=== PATIENT | female | born 1950 | race African-American/Black ===

== ENCOUNTER 2019-03-05 14:54 | Emergency (ER) | payer OTHER ==
--- NOTE | 2019-03-05 16:05 | RAD REPORT ---
EXAM DESCRIPTION: CT - Head Brain Wo Cont - 03/05/2019 3:55 pm CLINICAL HISTORY: Dysarthria/facial droop COMPARISON: 2016 MRI TECHNIQUE: Computed axial tomography of the head was obtained. IV contrast was not requested. All CT scans are performed using dose optimization technique as appropriate and may include automated exposure control or mA/KV adjustment according to patient size. FINDINGS: An intracranial bleed is not seen . The ventricles are normal in caliber. No extra-axial fluid collection is noted. Fluid within the sinuses/ mastoids is not seen. IMPRESSION: No acute intracranial abnormality is seen. If patient's symptoms persist MRI of the bra in would be recommended.
--- NOTE | 2019-03-05 16:18 | EKG ---
Test Date: 2019-03-05 Test Time: 14:55:03 Locksmith Helper: DANIEL MEASUREMENT RESULTS: Intervals: Rate: 75 KS: 152 QRSD: 92 QT: 354 QTc: 395 [place]: P: 65 KS: 152 QRS: -53 T: 50 INTERPRETIVE STATEMENTS: Normal sinus rhythm Left anterior fascicular block Abnormal ECG No previous ECG available for comparison Electronically Signed On 03-05-19 16:17:19 KICK PRESS SETTER by Yao Mcmahon
[2019-03-05 16:28] LABS: ALT/SGPT 117 U/L (12-78); AST/SGOT 65 U/L (15-37); Alkaline Phosphatase 89 U/L (45-117); BUN Blood Urea Nitrogen 10 mg/dL (7-18); Bicarbonate 28 mmol/L (21-32); Bilirubin Direct 0.2 mg/dL (0-0.2); Bilirubin Total 0.5 mg/dL (0.2-1.0); Glucose Level 124 mg/dL (74-106); Magnesium 1.8 mg/dL (1.8-2.4); NT PRO-BNP 210 pg/mL (<125); Potassium 3.2 mmol/L (3.5-5.1); Protein, Total 6.9 g/dL (6.4-8.2); Sodium Level 142 mmol/L (136-145); Troponin (Emerg Dept Use Only) < 0.02 ng/mL (0.0-0.045)
[2019-03-05 16:34] LABS: Absolute Lymphocytes (CBC) 3.1 K/uL (0.7-4.9); Basophils % 0.9 % (0-1.3); Hematocrit 39.5 % (36.0-45.0); Lymphocytes % 47.5 % (15.3-44.8); MPV 10.2 fL (7.6-11.3); RBC Red Blood Cell Count 4.67 M/uL (3.86-4.86)
[2019-03-05 16:36] LABS: Protime INR 1.25
--- NOTE | 2019-03-05 16:37 | RAD REPORT ---
EXAM DESCRIPTION: Abril Single View03/05/2019 4:06 pm CLINICAL HISTORY: Vomiting and dysarthria COMPARISON: none FINDINGS: The lungs appear clear of acute infiltrate. The heart is normal size IMPRESSION: No acute abnormalities displayed
[2019-03-05] MEDS ORDERED: POTASSIUM CL SA 10 MEQ TAB PO ONE (16:58)
--- NOTE | 2019-03-05 18:28 | RAD REPORT ---
EXAM DESCRIPTION: MRI - Brain Wo Cont - 03/05/2019 6:09 pm CLINICAL HISTORY: Dysarthria and weakness. Renal cell carcinoma COMPARISON: Head CT March 05, 2019 TECHNIQUE: Axial, sagittal, and coronal magnetic images of the brain were obtained. Contrast was not requested FINDINGS: No significant abnormal signal is present within the brain. Diffusion-weighted/ADC mapping does not reveal evidence of acute infarction. The ventricles are normal caliber. An extra-axial fluid collection is not present Fluid within the sinuses/mastoids is not present IMPRESSION: No acute abnormality is displayed
--- NOTE | 2019-03-05 19:08 | ER ---
Nurse's Notes [facility] Name: Marcela Mcmahon Age: 68 yrs Sex: Female : 1950 Arrival Date: 03/05/2019 Time: 14:59 Bed 6 Private MD: Diagnosis: Dizziness and giddiness Presentation: 03/05 15:00 Presenting complaint: EMS states: Pt went to PCP then to ENT and they reported she was jl7 having 'dysarthria and facial droop'. No facial droop noted, pt noted to be talking slowly. Pt reports vomiting Sunday night and having difficulty speaking and walking since Sunday with some right sided weakness. EMS reports VAN negative. Manual BP 180/90, HR 76, 93% on RA. Transition of care: patient was not received from another setting of care. Onset of symptoms was February 28, 2019. Risk Assessment: Do you want to hurt yourself or someone else? Patient reports no desire to harm self or others. Initial Sepsis Screen: Does the patient meet any 2 criteria? No. Patient's initial sepsis screen is negative. Does the patient have a suspected source of infection? No. Patient's initial sepsis screen is negative. Care prior to arrival: IV initiated. 18 GA, in the left wrist, Glucose check: 171 Oxygen administered. via nasal cannula. 15:00 Method Of Arrival: EMS: [facility] jl7 15:00 Acuity: ROBERT 2 jl7 15:00 No acute neurological deficit is noted. The patients blood glucose was checked before 7 arriving to the hospital and was found to be normal. Stroke Activation: Symptom onset > 6 hours Physician: Stroke Attending; Name: ; Notified At: ; Arrived At: Physician: Chief Stroke Resident; Name: ; Notified At: ; Arrived At: Physician: Stroke Resident; Name: ; Notified At: ; Arrived At: Physician: ED Attending; Name: ; Notified At: ; Arrived At: Physician: ED Resident; Name: ; Notified At: ; Arrived At: Historical: - Allergies: 15:12 Codeine; jl7 - PMHx: 15:12 Cancer; Hypertension; jl7 - Immunization history:: Adult Immunizations unknown. - Social history:: Smoking status: Patient/guardian denies using tobacco. - Ebola Screening: : No symptoms or risks identified at this time. Screenin:00 VAN Screening: Arm Drift: Patient shows no arm weakness. Patient is VAN negative. jl7 15:00 Abuse screen: Denies threats or abuse. Denies injuries from another. Nutritional jl7 screening: No deficits noted. Tuberculosis screening: No symptoms or risk factors identified. Fall Risk IV access (20 points). Total Bullock Fall Scale indicates No Risk (0-24 pts). 16:50 The patient has not been NPO before screening. The patient is currently on the jl7 following diet: Regular The patient is alert, able to follow commands. The patient does not exhibit slurred or garbled speech The patient is not exhibiting difficulty speaking. The patient does not exhibit difficulty understanding words. The patient is able to swallow own secretions with no drooling or need for suction. Patient tolerated one teaspoon of water. No drooling, immediate coughing, gurgling, or clearing of the throat was noted. The patient tolerated 90mL of water. No drooling, immediate coughing, gurgling, or clearing of the throat was noted. The patient passed the bedside swallow screening. Oral medications may be given as ordered. Contact Physician for further diet orders. Provider notified of bedside swallow screening results: Brian Bonds MD. Assessment: 15:00 General: Appears in no apparent distress. uncomfortable, obese, Behavior is calm, jl7 cooperative, drowsy. Pain: Denies pain. Neuro: Level of Consciousness is obeys commands, Drowsy. Oriented to person, place, time, situation, Denies dizziness. Cardiovascular: Denies chest pain, Heart tones S1 S2 present Patient's skin is warm and dry. Respiratory: Airway is patent Respiratory effort is even, unlabored, Respiratory pattern is regular, symmetrical, Breath sounds are clear bilaterally. GI: Abdomen is non-distended, obese, Reports nausea, Patient currently denies diarrhea. : Denies burning with urination. EENT: No signs and/or symptoms were reported regarding the EENT system. Derm: Skin is pink, warm \\T\\ dry. Musculoskeletal: No signs and/or symptoms reported regarding the musculoskeletal system. 15:59 Reassessment: Patient appears in no apparent distress at this time. No changes from jl7 previously documented assessment. Patient and/or family updated on plan of care and expected duration. Pain level reassessed. Patient is alert, oriented x 3, equal unlabored respirations, skin warm/dry/pink. Pt's sister at bedside and reports pt is at baseline other than being drowsy. 17:00 Reassessment: Patient appears in no apparent distress at this time. Patient and/or jl7 family updated on plan of care and expected duration. Pain level reassessed. Patient is alert, oriented x 3, equal unlabored respirations, skin warm/dry/pink. Patient states feeling better. Patient states symptoms have improved. 17:16 Reassessment: Pt states "What are we going to do about my dizziness?" On initial jl7 assessment pt denies dizziness, pt reports I've been dizzy since Sunday. Pt updated on MRI order. 18:15 Reassessment: Patient appears in no apparent distress at this time. No changes from jl7 previously documented assessment. Patient and/or family updated on plan of care and expected duration. Pain level reassessed. Patient is alert, oriented x 3, equal unlabored respirations, skin warm/dry/pink. 19:47 Reassessment: Patient and/or family updated on plan of care and expected duration. Pain ea level reassessed. Patient is alert, oriented x 3, equal unlabored respirations, skin warm/dry/pink. Discharge instruction given to patient, verbalized the understanding of instruction. Pt left ED via wheelchair per tech accompanied by family. Pt tolerating well Patient states feeling better. Patient states symptoms have improved. Vital Signs: 15:12 BP 143 / 72; Pulse 69; Resp 15 S; Temp 97.8(TE); Pulse Ox 95% on R/A; jl7 15:59 BP 141 / 78; Pulse 72; Resp 15; Pulse Ox 97% ; Pain 0/10; jl7 17:16 BP 143 / 75; Pulse 69; Resp 19 S; Pulse Ox 97% on R/A; Pain 0/10; jl7 18:20 BP 156 / 53; Pulse 73; Resp 18; Pulse Ox 99% ; sv 19:36 BP 137 / 71; Pulse 70; Resp 18; Temp 98; Pulse Ox 100% ; ea ED Course: 14:59 Patient arrived in ED. sv 15:00 Tony Leslie, RN is Primary Nurse. jl7 15:04 EKG done, by reprographics technician. reviewed by Brian Bonds MD. sm3 15:12 Triage completed. jl7 15:12 Brian Bonds MD is Attending Physician. kdr 15:12 Arm band placed on right wrist. jl7 15:15 Initial lab(s) drawn, by me, sent to lab. Maintain EMS IV. Dressing intact. Good blood jl7 return noted. Site clean \\T\\ dry. Gauge \\T\\ site: 18 left AC. 15:15 Patient has correct armband on for positive identification. Placed in gown. Bed in low jl7 position. Call light in reach. Side rails up X2. gas distribution plant operator on. Pulse ox on. NIBP on. Warm blanket given. 15:55 CT Head Brain wo Cont In Process Unspecified. EDMS 16:06 XRAY Chest (1 view) In Process Unspecified. EDMS 17:45 Patient moved to MRI via wheelchair. em2 18:08 MRI completed. Patient tolerated well. em2 18:12 Patient moved back from MRI. em2 18:15 Brain Wo Cont MRI In Process Unspecified. EDMS 19:40 IV discontinued, intact, bleeding controlled, No redness/swelling at site. Pressure ea dressing applied. 19:48 No provider procedures requiring assistance completed. ea Administered Medications: 17:00 Drug: Potassium Chloride 40 mEq Route: PO; jl7 17:06 Follow up: Response: No adverse reaction jl7 19:39 Drug: Meclizine 25 mg Route: PO; ea 19:50 Follow up: Response: No adverse reaction ea Outcome: 19:08 Discharge ordered by . kdr 19:49 Discharged to home via wheelchair, with family. ea 19:49 Condition: stable 19:49 Discharge instructions given to patient, Instructed on discharge instructions, follow up and referral plans. medication usage, Demonstrated understanding of instructions, follow-up care, medications, Prescriptions given X 1. 19:50 Patient left the ED. ea Signatures: Dispatcher [employer] EDMS Tamica Avila RN RN Brian Bonds MD MD kdr Montes, Enrique em2 Tony Leslie RN RN jl7 Jazmine Zapien RN RN ea Montes, Shakira 3 Corrections: (The following items were deleted from the chart) 17:28 17:16 Reassessment: Pt states "What are we going to do about my dizziness?" On initial jl7 assessment pt denies dizziness, pt reports I've been dizzy since Sunday. jl7
--- NOTE | 2019-03-05 19:09 | EDPHYS ---
Physician Documentation [facility] Name: Marcela Mcmahon Age: 68 yrs Sex: Female : 1950 Arrival Date: 03/05/2019 Time: 14:59 Bed 6 Private MD: ED Physician Brian Bonds HPI: 03/06 07:09 This 68 yrs old Black Female presents to ER via EMS with complaints of S/S of Possible kdr Stroke. 07:09 The patient's problem is reported as a facial droop, dysphasia, slow speech. Onset: The kdr symptoms/episode began/occurred Last Sunday. Duration: This was a single incident, The episodes are intermittent, The complaint is vague and not obvious on initial presentation. Context: the episode(s) was witnessed, by a bystander, by family, symptoms became apparent Sunday, occurred at home. The symptoms are alleviated by nothing. The symptoms are aggravated by nothing. Associated signs and symptoms: The patient has no apparent associated signs or symptoms. Onset: The symptoms/episode began/occurred suddenly. Severity of symptoms: At their worst the symptoms were mild in the emergency department the symptoms have improved mildly. Patient's baseline: Neuro: alert and fully oriented, Motor: no deficits, Ambulation: walks without assistance. The patient has not experienced similar symptoms in the past. The patient has not recently seen a physician. Historical: - Allergies: 03/05 15:12 Codeine; jl7 - PMHx: 15:12 Cancer; Hypertension; jl7 - Immunization history:: Adult Immunizations unknown. - Social history:: Smoking status: Patient/guardian denies using tobacco. - Ebola Screening: : No symptoms or risks identified at this time. ROS: 03/06 07:09 Constitutional: Negative for fever, chills, and weight loss, Eyes: Negative for injury, kdr pain, redness, and discharge, ENT: Negative for injury, pain, and discharge, Neck: Negative for injury, pain, and swelling, Cardiovascular: Negative for chest pain, palpitations, and edema, Respiratory: Negative for shortness of breath, cough, wheezing, and pleuritic chest pain, Abdomen/GI: Negative for abdominal pain, nausea, vomiting, diarrhea, and constipation, Back: Negative for injury and pain, : Negative for injury, bleeding, discharge, and swelling, MS/Extremity: Negative for injury and deformity, Skin: Negative for injury, rash, and discoloration, Psych: Negative for depression, anxiety, suicide ideation, homicidal ideation, and hallucinations, Allergy/Immunology: Negative for hives, rash, and allergies, Endocrine: Negative for neck swelling, polydipsia, polyuria, polyphagia, and marked weight changes, Hematologic/Lymphatic: Negative for swollen nodes, abnormal bleeding, and unusual bruising. Neuro: Positive for speech changes, Negative for altered mental status, dizziness, gait disturbance, headache, hearing loss, loss of consciousness, numbness, seizure activity, syncope, tinnitus, tremor, visual changes. Exam: 07:09 Radiologist reports: Negative kdr 07:09 Constitutional: This is a well developed, well nourished patient who is awake, alert, and in no acute distress. Head/Face: Normocephalic, atraumatic. Eyes: Pupils equal round and reactive to light, extra-ocular motions intact. Lids and lashes normal. Conjunctiva and sclera are non-icteric and not injected. Cornea within normal limits. Periorbital areas with no swelling, redness, or edema. Neck: Trachea midline, no thyromegaly or masses palpated, and no cervical lymphadenopathy. Supple, full range of motion without nuchal rigidity, or vertebral point tenderness. No Meningismus. Chest/axilla: Normal chest wall appearance and motion. Nontender with no deformity. No lesions are appreciated. Cardiovascular: Regular rate and rhythm with a normal S1 and S2. No gallops, murmurs, or rubs. Normal PMI, no JVD. No pulse deficits. Respiratory: Lungs have equal breath sounds bilaterally, clear to auscultation and percussion. No rales, rhonchi or wheezes noted. No increased work of breathing, no retractions or nasal flaring. Abdomen/GI: Soft, non-tender, with normal bowel sounds. No distension or tympany. No guarding or rebound. No evidence of tenderness throughout. Back: No spinal tenderness. No costovertebral tenderness. Full range of motion. Skin: Warm, dry with normal turgor. Normal color with no rashes, no lesions, and no evidence of cellulitis. MS/ Extremity: Pulses equal, no cyanosis. Neurovascular intact. Full, normal range of motion. Neuro: Awake and alert, GCS 15, oriented to person, place, time, and situation. Cranial nerves II-XII grossly intact. Motor strength 5/5 in all extremities. Sensory grossly intact. Cerebellar exam normal. Normal gait. Psych: Awake, alert, with orientation to person, place and time. Behavior, mood, and affect are within normal limits. Vital Signs: 03/05 15:12 BP 143 / 72; Pulse 69; Resp 15 S; Temp 97.8(TE); Pulse Ox 95% on R/A; jl7 15:59 BP 141 / 78; Pulse 72; Resp 15; Pulse Ox 97% ; Pain 0/10; jl7 17:16 BP 143 / 75; Pulse 69; Resp 19 S; Pulse Ox 97% on R/A; Pain 0/10; jl7 18:20 BP 156 / 53; Pulse 73; Resp 18; Pulse Ox 99% ; sv 19:36 BP 137 / 71; Pulse 70; Resp 18; Temp 98; Pulse Ox 100% ; ea MDM: 19:08 Patient medically screened. [facility] 03/06 07:09 Data reviewed: vital signs, nurses notes, lab test result(s), EKG, radiologic studies. kdr Counseling: I had a detailed discussion with the patient and/or guardian regarding: the historical points, exam findings, and any diagnostic results supporting the discharge/admit diagnosis, lab results, radiology results, the need for outpatient follow up. 03/05 15:38 Order name: Basic Metabolic Panel; Complete Time: 16:35 [facility] 03/05 15:38 Order name: CBC with Diff; Complete Time: 19:06 [facility] 03/05 15:38 Order name: LFT's; Complete Time: 16:35 [facility] 03/05 15:38 Order name: Magnesium; Complete Time: 16:35 [facility] 03/05 15:38 Order name: NT PRO-BNP; Complete Time: 16:35 [facility] 03/05 15:38 Order name: PT-INR; Complete Time: 19:06 [facility] 03/05 15:38 Order name: Troponin (emerg Dept Use Only); Complete Time: 16:35 [facility] 03/05 15:38 Order name: XRAY Chest (1 view); Complete Time: 19:06 [facility] 03/05 15:38 Order name: EKG; Complete Time: 15:40 [facility] 03/05 15:38 Order name: Cardiac monitoring; Complete Time: 16:10 [facility] 03/05 15:38 Order name: CT Head Brain wo Cont; Complete Time: 16:35 kdr 03/05 16:53 Order name: Brain Wo Cont MRI; Complete Time: 19:06 03/05 15:38 Order name: EKG - Nurse/Tech; Complete Time: 16:10 kdr 03/05 15:38 Order name: IV Saline Lock; Complete Time: 16:10 kdr 03/05 15:38 Order name: Labs collected and sent; Complete Time: 16:10 [facility] 03/05 15:38 Order name: O2 Per Protocol; Complete Time: 16:10 kdr 03/05 15:38 Order name: O2 Sat Monitoring; Complete Time: 16:09 [facility] Administered Medications: 03/05 17:00 Drug: Potassium Chloride 40 mEq Route: PO; [facility] 17:06 Follow up: Response: No adverse reaction [facility] 19:39 Drug: Meclizine 25 mg Route: PO; ea 19:50 Follow up: Response: No adverse reaction ea Disposition: 03/05/19 19:08 Discharged to Home. Impression: Dizziness and giddiness. - Condition is Stable. - Discharge Instructions: Dizziness, [id number]. - Prescriptions for Meclizine 25 mg Oral Tablet - take 1 tablet by ORAL route every 8 hours As needed; 30 tablet. - Medication Reconciliation Form, Thank You Letter form. - Follow up: Private Physician; When: 2 - 3 days; Reason: If symptoms return, Further diagnostic work-up, Recheck today's complaints, Continuance of care, Re-evaluation by your physician. - Problem is an ongoing problem. - Symptoms have improved. Signatures: Dispatcher [employer] EDPA Brian Bonds MD MD kdr Tony Leslie RN RN jl7 Jazmine Zapien RN RN ea Corrections: (The following items were deleted from the chart) 19:50 19:08 03/05/2019 19:08 Discharged to Home. Impression: Dizziness and giddiness. ea Condition is Stable. Forms are Medication Reconciliation Form, Thank You Letter, Antibiotic Education, Prescription Opioid Use. Follow up: Private Physician; When: 2 - 3 days; Reason: If symptoms return, Further diagnostic work-up, Recheck today's complaints, Continuance of care, Re-evaluation by your physician. Problem is an ongoing problem. Symptoms have improved. kdr
[2019-03-05] MEDS ORDERED: MECLIZINE HCL 12.5 MG TAB ONE (19:35)
[2019-03-05 20:02] VITALS: BP 137/71; TEMP 98; O2SAT 100
--- OUTSIDE RECORDS SUMMARY | 2019-03-10 01:21 | XMS REPORT ---
:1950 Author Organization [facility] Address [address] [place] [address] [address] Care Team Providers Name Role Phone CYNDIE TORREZ Unavailable Unavailable Problems This patient has no known problems. Allergies, Adverse Reactions, Alerts This patient has no known allergies or adverse reactions. Medications This patient has no known medications. Results Test Description Test Time Test Comments Text Results Atomic Results Result Comments CHEST 2018-12-31 [facility] SINGLE 06:37:[address] (PORTABLE) [address] Patient Name: POLI STOUT MR #: [id number] : 1950 Age/Sex: 68/ F Req #: [id number] Adm Physician: Ordered by: CYNDIE TORREZ MD Report #: [id number] Location: OR Room/Bed: Procedure: [id number] DX/CHEST SINGLE (PORTABLE) Exam Date: 12/31/18 Exam Time: 624 REPORT STATUS: Signed EXAMINATION: CHEST SINGLE (PORTABLE) COMPARISON: None INDICATION: Preop PRE-OP #6 [id number] DISCUSSION: Frontal view of the chest obtained at 0629 hours. HEART AND MEDIASTINUM: The heart is top normal in size to mildly enlarged. The aorta is tortuous. Hilar vasculature is prominent. LINES: None. LUNGS: Mild left right basilar atelectasis. Diffuse bronchial wall thickening. No interstitial edema. PLEURA: No pleural effusion or pneumothorax. BONES AND SOFT TISSUES: Degenerative changes of the spine and right AC joint. The soft tissues are normal. IMPRESSION: Mild cardiomegaly and central vascular congestion. Small airspace opacity in the right lung base may represent atelectasis or pneumonia. Signed by: Dr. Jimbo Sosa MD on 12/31/2018 6:38 AM Dictated By: JIMBO SOSA MD 7 Transcribed By: RONIT on 12/31/18637 COPY TO: CYNDIE TORREZ MD
== END 2019-03-05 19:50 | disposition home or self-care (01) ==
LOC: ER 14:54
DX: R42 Dizziness and giddiness (principal); I10 Essential (primary) hypertension; Z85.9 Personal history of malignant neoplasm, unspecified; Z88.5 Allergy status to narcotic agent
CPT/HCPCS: 36415; 70450; 70551; 71045; 80048; 80076; 83735; 83880; 84484; 85025; 85610; 93005; 99285; J8597

== ENCOUNTER 2023-04-26 06:27 | Day surgery (SDC) | payer OTHER ==
[2023-04-26] MEDS ORDERED: Ringers Lactate 1,000 ML IV ONE (06:46)
[2023-04-26 07:36] LABS: Absolute Lymphocytes (CBC) 2.3 K/uL (0.7-4.9); Lymphocytes % 33.8 % (15.3-44.8); MCV 83.4 fL (80-100); MPV 9.2 fL (7.6-11.3); Platelets 183 thou/uL (152-406); RBC Red Blood Cell Count 4.68 M/uL (3.86-4.86)
[2023-04-26 07:50] LABS: Potassium 4.2 mEq/L (3.5-5.1)
[2023-04-26] MEDS ORDERED: FENTANYL CITR 100 MCG/2 ML ONE (08:25)
[2023-04-26] MEDS ORDERED: ROCURONIUM 50 MG/5 ML VIAL IV ONE (08:25)
[2023-04-26] MEDS ORDERED: LIDOCAINE 1% MPF 5 ML VIAL ONE (08:25)
[2023-04-26] MEDS ORDERED: propofoL 200 MG/20 ML VIAL IV ONE ×4 (08:25→10:05)
[2023-04-26] MEDS ORDERED: MIDAZOLAM HCL 2 MG/2 ML INJ ONE (08:25)
[2023-04-26] MEDS: CEFAZOLIN SODIUM 2 GM/VIAL ONE ×2 (08:35→09:21)
[2023-04-26] MEDS: LIDOCAINE HCL/EPINEPHRINE 20 ML MDV ONE ×2 (08:36→09:34)
--- NOTE | 2023-04-26 10:39 | RAD REPORT ---
EXAM DESCRIPTION: RAD - Fluoroscopy <1 Hour - 04/26/2023 10:24 am CLINICAL HISTORY: SACRAL NEURO MOD COMPARISON: None available. FINDINGS: Fifteen Images were sent to PACS, documenting fluoroscopy utilization during a sacral neur o modulator placement procedure. No radiologist was available for the procedure, nor will any image i nterpretation he provided. Please refer to the procedural report for additional details. Fluoroscopy time: 1.9 Minutes. IMPRESSION: Documentation of fluoroscopy utilization as above.
[2023-04-26 11:02] VITALS: TEMP 97; O2SAT 100
[2023-04-26] MEDS ORDERED: HYDROCODONE/APAP 5/325 MG TAB ONE (11:51)
--- NOTE | 2023-04-26 13:26 | EKG ---
Test Date: 2023-04-24 Test Time: 14:41:57 Electrician Ship: CARLOS MEASUREMENT RESULTS: Intervals: Rate: 66 CO: 164 QRSD: 92 QT: 406 QTc: 425 [place]: P: 52 CO: 164 QRS: -42 T: 13 INTERPRETIVE STATEMENTS: Normal sinus rhythm Left axis deviation Minimal voltage criteria for LVH, may be normal variant Abnormal ECG Compared to ECG 03/05/2019 14:55:03 Left-axis deviation now present Left ventricular hypertrophy now present Left anterior fascicular block no longer present Electronically Signed On 04-26-23 13:22:27 QUALITY CONTROL MANAGER by Adolfo Pace
[2023-04-26 14:39] VITALS: BP 128/64
--- NOTE | 2023-04-26 22:14 | OP ---
Surgeon: Reshma Brian MD 3Rd Mate: No assistants. Preoperative Diagnoses: Urge urinary incontinence and incomplete bladder emptying. Postoperative Diagnoses: Urge urinary incontinence and incomplete bladder emptying. Procedures Performed: Complete InterStim system implantation with incision and implantation of tined quadripolar lead electrodes into S3 foramen with fluoroscopic guidance for needle placement, subcuta neous implantation of sacral nerve neurostimulator and electronic analysis and programming. Specimens: No specimens. Complications: No complications. Drains: No drains. Estimated Blood Loss: Less than 10 mL. Anesthesia: General endotracheal. Findings: Right S3 was used and the right buttock pocket for the implant. Then, all 4 leads had lindsay y good Bisi and toe response. Indications: Patient is a 73-year-old with significant urge urinary incontinence and incomplete blad erendira emptying. She had a bladder log done, underwent urodynamic testing. Has incomplete bladder empt jarad, occasional intermittent bladder infections with severe urge urinary incontinence, possible stre ss as well, so we discussed about all the different options. First line instructions were given to t he patient, had not improved with the second line contraindications because of her hypertension, form er background, and because of her mental impairment including memory loss as a contraindication for a nticholinergic, so discussed about third line treatment. She has incomplete bladder emptying, she is inappropriate candidate for Botox and so neurostimulator was discussed. Office PNE was performed. She had greater than 50% response with the office PNE, so she was consented for a full system implant and consented and brought to the hospital. The daughter was present at the time of the consent and all questions were adequately answered to their satisfaction. Description Of Procedure: After re-verifying her consent in the preoperative area, she was taken [place] to the OR, patient was properly identified and placed in a prone position by the OR protocol. Afte r general endotracheal anesthesia was administered, pillows were placed under her lower abdomen to fl atten her sacrum and under shins to allow the toes to dangle freely. Patient was prepped and draped in a usual sterile fashion using ChloraPrep. C-arm was draped and moved into AP position to provide fluoroscopic mapping of the sacral region. This included identification of the midline, SI joint, sc iatic notches, foraminal borders, and sacral foramina. A C-arm was then placed into the lateral posi tion to image the area from the sacral promontory to the coccyx. The midline and the tip of the cocc yx were all identified and lines drawn at 10, 11, and 12 cm from the coccyx in the midline. Horizont al lines markings were made, 2 cm lateral on each side. A short foramen needle was used to introduce approximately 2 cm lateral to the sacral midline at almo st the 12 cm sree. Feeling for the foraminal margins until the foramen was identified and penetrated . On testing of this, there with mild Bisi, no toes. On the fluoroscopy, this was an S3, however , it was unsatisfactory response. Needle on the other side was tried at a similar location on the le ft side of the patient. Although S3 was reached with a shorter and a longer needle, there was also r esponse of S2 with hip rotation and heel response, so I decided to go back on to the right side. A n ew foramen needle was used to go 3 mm lateral to the 2 cm sree at 11 cm from the coccyx and here I we nt into foramen from the lateral to medial direction. On testing, this has had very good response wi th Bisi and toes, so this was chosen for the positioning. The depth of the foramen needle was confirmed fluoroscopically and adjusted. The foramen needle styl et was removed and bidirectional guide was placed and confirmed fluoroscopically. The foramen needle was removed after an 11 blade was used to make an incision on the skin. An incision was made periph erally to the bidirectional guide through the fascial layer once the needle was removed. The lead in troducer sheath and dilator was placed over the bidirectional guide and directed into foramen to ensu re the radiopaque marker of the lead introducer. It did not extend beyond the anterior to the sacru m. There was mild bleeding here and so the obturator was put back in place after the dilator was unl ocked and removed along with a bidirectional guide. We waited couple of minutes so that the bleeding would stop and once the dilator was removed, there was no bleeding. The lead was then placed throug h the introducer sheath to the second white line as I was using a longer needle. The position was ch ecked fluoroscopically. Lead was then further introduced until 3 electrodes were visible below the s acrum. Each electrode was tested for Bisi and plantar flexion of the great toe. After satisfacto ry positioning was confirmed, the introducer sheath was retracted under continuous fluoroscopy deploy ing the tined leads into the presacral tissue. Further incision was made in subcutaneous tissues, posterior to the iliac spine on the right side and lateral to the sacrum. Blunt dissection was continued until the gluteal fascia was identified and s tayed slightly above the level of the gluteal fascia due to the thickness of the patient on the side and hemostasis was used, allowing for sufficient pocket for the neurostimulator. A tunneling tool wi th straw was placed from the lead exit site subcutaneously to the incised pocket site. The tunneling tool was removed and the lead was fed through the straw and pulled out at the pocket site. The lead was then cleansed off bodily fluids and dried. The lead was inserted into the InterStim 2 neurostim ulator and the metal bands were aligned with the blue lead tip clearly visible in the distal portion of the neurostimulator header. The single set screw was tightened with a hex wrench. The neurostimu lator was then placed into the subcutaneous pocket with the etched identification side placed upwards and the excessive lead wrapped counterclockwise around the neurostimulator. The programming head wa s placed over the implanted neurostimulator in a sterile cover to ensure adequate lead connection and the parameters were within normal limits. Impedances were confirmed to be within normal limits, gre ater than 50 and less than 4000. Wounds were irrigated with antibiotic solution and water and closed with 3-0 chromic continuous runni ng in 2 layers, subcutaneous tissues and subcuticular sutures with 5-0 Monocryl in a continuous runni ng manner. Counts were correct. Steri-Strips were placed and a 4 x 4 gauze was placed over the inci sions. EBL less than 10. The patient was transferred to the recovery room in a satisfactory conditi on. Using the clinician community recreation programmer, the generator was programmed. The total time spent was approxim ately 10 minutes. Patient was then given instructions on utilizing the patient community recreation programmer prior to d ischarge. Final electrode selections were set and entered into the chart. She has a 3 week postop followup. Her daughter was debriefed about her procedures. ROSALVA Voice ID: [id number] Report ID: [id number]
== END 2023-04-26 12:30 | disposition home or self-care (01) ==
LOC: OR 06:27
PROVIDERS: ATTEND Obstetrics & Gynecology
PROC: 0JH73BZ Insertion of Single Array Stimulator Generator into Back Subcutaneous Tissue and Fascia, Percutaneous Approach (ICD-10-PCS; 2023-04-26)
PROC: 01HY3MZ Insertion of Neurostimulator Lead into Peripheral Nerve, Percutaneous Approach (ICD-10-PCS; principal; 2023-04-26 08:00)
DX: N39.41 Urge incontinence (principal); R33.9 Retention of urine, unspecified; R41.3 Other amnesia; Z87.440 Personal history of urinary (tract) infections
CPT/HCPCS: 93005; 85025; 80048; 36415; 64561; 64590; J2704 ×4; J2001; J3010; J7120; C1778; C1767; 76000; J2250